=== PATIENT | female | born 2000 | race Caucasian/White ===

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

== ENCOUNTER 2022-05-25 18:36 | Emergency (ER) | payer MEDICAID ==
[~2022-05-25] VITALS: Ht 172.7 cm; Wt 61.2 kg
[2022-05-25 18:43] VITALS: BP_SYST 128
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
--- NOTE | 2022-05-25 20:15 | NUR ---
MD Castrejon at bedside.
[2022-05-25] MEDS ORDERED: IBUP-1971 PO (20:17)
--- NOTE | 2022-05-25 20:25 | NUR ---
Pt given water per pt request.
--- NOTE | 2022-05-25 20:56 | NUR ---
Patient given written and verbal discharge instructions and verbalizes understanding. ER MD discussed with patient the results and treatment provided. Patient in stable condition. ID arm band removed. Rx of motrin given. Patient educated on pain management and to follow up with PMD. Pain Scale 1/10. Opportunity for questions provided and answered. Medication side effect fact sheet provided.
[2022-05-25 20:57] VITALS: BP_SYST 117
== END 2022-05-25 20:57 | disposition home or self-care (01) ==
LOC: SED 18:36
DX: S00.93XA Contusion of unspecified part of head, initial encounter (principal); S00.211A Abrasion of right eyelid and periocular area, initial encounter; Z88.1 Allergy status to other antibiotic agents; Z79.899 Other long term (current) drug therapy; Y04.0XXA Assault by unarmed brawl or fight, initial encounter; Y93.89 Activity, other specified; Y92.89 Other specified places as the place of occurrence of the external cause; Y99.8 Other external cause status
CPT/HCPCS: 70450-TC; 72125-TC; 76376; 99284